=== PATIENT | female | born 1935 | race Caucasian/White ===

== ENCOUNTER → 2024-05-01 14:30 | Outpatient (REF) | payer OTHER, SELFPAY | LOC: RAD 14:30 | PROVIDERS: ATTENDING PHYSICIAN Physician Assistant | DX: Z91.81 History of falling (principal); M25.561 Pain in right knee | CPT/HCPCS: 73564 ==

== ENCOUNTER → 2024-06-18 12:58 | Outpatient (REF) | payer OTHER, SELFPAY | LOC: RAD 12:58 | PROVIDERS: ATTENDING PHYSICIAN Physician Assistant | DX: R00.1 Bradycardia, unspecified (principal); R09.02 Hypoxemia | CPT/HCPCS: 71046 ==

== ENCOUNTER 2024-10-07 01:03 | Emergency (ER) | payer OTHER, SELFPAY ==
[2024-10-07 01:12] VITALS: BP 180/77
[2024-10-07 01:19] VITALS: BMI 22.3
[2024-10-07 01:49] LABS: % Basophils 0.4 % (0-2); % Eosinophils 1.6 % (0-6); % Immature Granulocytes 0.2 % (0-0.5); % Lymphocytes 22.5 % (20.5-51.1); % Monocytes 5.1 % (1.7-9.3); % Neutrophils 70.2 % (42.2-75.2); Absolute Eosinophils 0.2 10^3/uL (0-0.7); Absolute Lymphocytes 2.4 10^3/uL (1.2-3.4); Absolute Monocytes 0.5 10^3/uL (0.1-0.6); Absolute Neutrophils 7.5 10^3/uL (1.4-6.5); Hemoglobin 13.4 g/dL (12.0-16.0); Mean Corp Hgb Conc. 35.3 g/dL (33.0-37.0); Mean Corpuscular Hgb 30.3 pg (27.0-31.0); Mean Platelet Volume 9.5 fL (7.4-10.4); Nucleated Red Blood Cells % 0 %; Platelet Count 253 10^3/uL (130-400); Red Blood Cell Count 4.42 10^6/uL (4.20-5.40); Red Cell Dist. Width 12.6 % (11.5-14.5); White Blood Cell Count 10.6 10^3/uL (4.8-10.8)
[2024-10-07 02:00] VITALS: BP 133/70
[2024-10-07 02:01] LABS: ALT (SGPT) 17 U/L (0-35); AST (SGOT) 18 U/L (14-36); Albumin 4.3 g/dl (3.5-5.0); Alkaline Phosphatase 64 U/L (38-126); Blood Urea Nitrogen 25 mg/dl (7-17); Calcium 9.7 mg/dl (8.4-10.2); Carbon Dioxide 26 mmol/L (22-30); Chloride 109 mmol/L (98-107); Estimated Creatinine Clearance 30 ml/min; Glucose 117 mg/dl (70-99); Lipase 159 U/L (23-300); Sodium 141 mmol/L (135-145); Total Bilirubin 0.4 mg/dl (0.2-1.3); Total Protein 6.8 g/dl (6.3-8.2); eGFR > 60.00
[2024-10-07 02:13] LABS: Troponin I 0.021 ng/ml
--- NOTE | 2024-10-07 02:59 | ED.GENMED ---
History of Present Illness
<Merlyn Menjivar DO - Last Filed: 10/07/24 05:03>
General
Chief Complaint: Chest Pain
Time Seen by Provider: 10/07/24 02:47
<BRIJESH Breaux - Last Filed: 10/07/24 06:00>
General
Source: patient and family
Exam Limitations: none
History of Present Illness
History of Present Illness:
Pt is an 89 yo F with PMH of HLD, GERD, IBS, seasonal allergies, depression, and skin CA who is s/p total hysterectomy who presents to the ER c/o chest pressure x 30 minutes. Patient explains that she went to bed at 10 pm and fell asleep quickly,
and then was woken up by a feeling of chest pressure at midnight, stating she had a substernal pressure. She felt some associated nausea but denies vomiting. She then became anxious, and called her son who instructed her to call . Patient
explains that once the funeral director and embalmer arrived, she realized she knew one of them from when they were a child, and her pain went away. She has been free of pressure since arriving here to the hospital and is currently without complaints. She denies dyspnea,
vomiting, fever, or any other associated symptoms.
Past History
<BRIJESH Breaux - Last Filed: 10/07/24 06:00>
Past History
ED Past Medical History: Asthma, GERD, Hypercholesterolemia and Other (Diverticulitis)
ED Past Surgical History: Gynecological (Total hysterectomy)
Social History
Tobacco: Former smoker
Alcohol: Occasional
Drug: None
Personal:
Living: with family ( at bedside)
Family History
Family History: Unable to obtain (patient does not recall)
Phy Exam
<BRIJESH Breaux - Last Filed: 10/07/24 06:00>
Physical Exam
Physical Exam:
See below
Scores
<Merlyn Menjivar DO - Last Filed: 10/07/24 05:03>
Heart Score for Chest Pain Patients
STEMI patient?: No
History: Slightly or Non-Suspicious
ECG: Normal
Age: >/= 65 years
Risk Factors: 1 or 2 Risk Factors
Troponin: </= Normal Limit
Heart Score for Chest Pain Patients: 3
Heart Score Risk: 2.5% MACE over next 6 weeks
<ST SaeidPA - Last Filed: 10/07/24 06:00>
Heart Score for Chest Pain Patients
Heart Score for Chest Pain Patients: 3
Heart Score Risk: 2.5% MACE over next 6 weeks
Course
<DO Chrissie Duron Last Filed: 10/07/24 05:03>
Orders/Labs/Results
Orders:
Orders
10/07/24 01:05
Electrocardiogram (*1) Urgent
Reason for Study: Chest Pain
EKG- Treatment ONCE
10/07/24 01:33
Complete Blood Count/With Diff Urgent
Comprehensive Metabolic Panel Urgent
Lipase Urgent
Troponin I Urgent
10/07/24 02:55
CR Chest - 2 Views Urgent
Comment:
Reason For Exam: acute CP
10/07/24 03:01
US Abdomen Complete/Upper Urgent
Comment:
Reason For Exam: Acute CP, RUQ pain tonight w nausea
10/07/24 04:05
Troponin I Urgent
Abnormal Lab Results
10/07/24
01:33
Absolute Neuts (auto) 7.5 H 10^3/uL
(1.4-6.5)
Chloride 109 H mmol/L
(98-107)
BUN 25 H mg/dl
(7-17)
Glucose 117 H mg/dl
(70-99)
10/07/24 01:33
10/07/24 01:33
Vital Signs
Initial and Last Documented VS:
Initial Vital Signs
Temp Pulse Resp BP Pulse Ox
99.0 F 67 20 180/77 100
10/07/24 01:12 10/07/24 01:12 10/07/24 01:12 10/07/24 01:12 10/07/24 01:12
Last Documented Vital Signs
Temp Pulse Resp BP Pulse Ox
99.0 F 62 18 116/62 95
10/07/24 01:12 10/07/24 05:00 10/07/24 04:45 10/07/24 05:00 10/07/24 04:45
<BRIJESH Breaux - Last Filed: 10/07/24 06:00>
Orders/Labs/Results
Orders:
Orders
10/07/24 01:05
Electrocardiogram (*1) Urgent
Reason for Study: Chest Pain
EKG- Treatment ONCE
10/07/24 01:33
Complete Blood Count/With Diff Urgent
Comprehensive Metabolic Panel Urgent
Lipase Urgent
Troponin I Urgent
10/07/24 02:55
CR Chest - 2 Views Urgent
Comment:
Reason For Exam: acute CP
10/07/24 03:01
US Abdomen Complete/Upper Urgent
Comment:
Reason For Exam: Acute CP, RUQ pain tonight w nausea
10/07/24 04:05
Troponin I Urgent
Abnormal Lab Results
10/07/24
01:33
Absolute Neuts (auto) 7.5 H 10^3/uL
(1.4-6.5)
Chloride 109 H mmol/L
(98-107)
BUN 25 H mg/dl
(7-17)
Glucose 117 H mg/dl
(70-99)
10/07/24 01:33
10/07/24 01:33
Vital Signs
Initial and Last Documented VS:
Initial Vital Signs
Temp Pulse Resp BP Pulse Ox
99.0 F 67 20 180/77 100
10/07/24 01:12 10/07/24 01:12 10/07/24 01:12 10/07/24 01:12 10/07/24 01:12
Last Documented Vital Signs
Temp Pulse Resp BP Pulse Ox
99.0 F 62 18 116/62 95
10/07/24 01:12 10/07/24 05:00 10/07/24 04:45 10/07/24 05:00 10/07/24 04:45
<DO Chrissie Duron Last Filed: 10/07/24 05:03>
*Radiology
Radiology exam reviewed: preliminary read by ED provider (Chest x-ray is unremarkable, unchanged from previous)
*Pulse Oximetry
Patient hypoxic: no
*EKG
Interpreted by ED Provider?: Yes
Interpretation: normal
Comparison EKG: no changes (Unchanged from previous March 2019)
Rate: bradycardiac
Rhythm: sinus
[place]: normal axis
Interval: normal interval
QRS Pattern: normal QRS
Ischemia: no ischemia
*Marketing Professional Interpretation
Rate: bradycardiac
Interpretation: normal
Rhythm: sinus
*Critical Care Note
Total Time (30-74mins, 75-104mins- exclusive of procedures): Not Applicable
ED Attending Note
<DO Chrissie Duron Last Filed: 10/07/24 05:03>
ED Attending Note
Patient seen and examined by attending physician: Yes
I performed the substantive portion of visit, reviewed & personally made and approve the management plan that is documented in note by myself or TEDDY.: Yes
ED Attending Note:
This is a jas 89-year-old woman with history of asthma, hyperlipidemia, GERD, irritable bowel syndrome, diverticulosis. She awoke around midnight tonight with abrupt onset of moderate to severe substernal chest pain which she describes as a
pressure accompanied with nausea. Chest pressure was nonradiating. Moderate in nature and seem different from previous episodes of acid reflux. She drank a small sip of garcia juventino and burped without relief of pain. She called her son who
recommended that she call 911. Upon EMS arrival, prehospital EKG unremarkable. She was given 324 mg chewable aspirin.
According to EMS noted to dannych several times and since arrival to the ED she is now chest pain-free.
Prior records reviewed. Unremarkable cardiac catheterization 2016.
GENERAL: 89-year-old woman appears her her stated age, bright and alert, pleasant, appears in no acute distress.
EYE: pupils equal. anicteric
NECK: Supple, nontender, no meningismus, no significant adenopathy.
ENT: oral mucosa is moist.
CARDIAC: Regular rate and rhythm. no murmur. No chest wall tenderness.
LUNGS: Clear breath sounds bilaterally, no acute respiratory distress, no wheezes/rales/rhonchi
ABDOMEN: Soft, nondistended, mild tenderness right upper quadrant as well as minimal tenderness epigastric region, no r/g, no cvat. normoactive BS.
NEUROLOGICAL: Alert and oriented x3, no focal neuro deficits.
SKIN: Warm and dry, normal color, skin intact. No rash.
MUSCULOSKELETAL: No C/C/E. peripheral pulses are full and equal b/l. No palpable tenderness.
PSYCH: Normal and appropriate interaction.
Concern for ACS, GERD, cholecystitis, pancreatitis.
Prehospital EKG unremarkable as well as EKG upon arrival.
Labs thus far unremarkable. Initial troponin 0.021. Unremarkable LFTs as well as lipase.
Will plan to repeat troponin. Will check chest x-ray as well as abdominal ultrasound.
04:50
Patient remains chest pain-free and comfortable.
Repeat troponin is negative.
Chest x-ray is unremarkable.
Abdominal ultrasound is unremarkable.
I suspect an episode of GERD.
Will discharge to home with recommendations for prompt follow-up with PCP.
Prompt return precautions discussed.
<BRIJESH Breaux - Last Filed: 10/07/24 06:00>
-
Portions of this chart may have been created with voice recognition software.� Occasional wrong word or��sound alike� substitutions may have occurred due to the inherent limitations of voice recognition software.
Discharge Plan
Departure
Patient Disposition: Home (Routine Discharge)
Date of Disposition: 10/07/24
Time of Disposition: 05:00
Patient with high blood pressure during this ER visit?: No
Condition: Good
Discharge Problem:
Acute chest pain
Instructions: Acid Reflux and GERD in Adults (DC), Chest Pain PCP Follow Up
Prescriptions:
No Action
No Current Medications
0
Referrals:
Carlos Enrique Nye MD [Family Provider] - Call in 1-3 days for appt
Interventions
Interventions:
*Risk Screen - Suicide Last Done: 10/07/24 01:12
*General Assessment Last Done: 10/07/24 01:12
*Neglect/Abuse Screening Last Done: 10/07/24 01:12
*ED- Fall Risk Assessment Last Done: 10/07/24 01:12
*ED COVID-19 Vaccine History Last Done: 10/07/24 01:12
ED- Cardiac Assessment Last Done: 10/07/24 01:12
Discharge Date and Time
Print Language: TURKISH
[2024-10-07 03:00] VITALS: BP 146/66
[2024-10-07 04:46] LABS: Troponin I 0.024 ng/ml
[2024-10-07 05:00] VITALS: BP 116/62
== END 2024-10-07 06:04 | disposition home or self-care (01) ==
LOC: EMR 01:03
PROVIDERS: EMERGENCY PHYSICIAN Emergency Medicine; FAMILY PHYSICIAN Internal Medicine
DX: R07.89 Other chest pain (principal); E78.00 Pure hypercholesterolemia, unspecified; K21.9 Gastro-esophageal reflux disease without esophagitis; K58.9 Irritable bowel syndrome, unspecified; J45.909 Unspecified asthma, uncomplicated; Z87.891 Personal history of nicotine dependence; Z90.710 Acquired absence of both cervix and uterus
CPT/HCPCS: 99284; 71046; 76700; 80053; 83690; 84484; 85025; 93005